=== PATIENT | female | born 1965 | race Hispanic/Latino ===

== ENCOUNTER 2017-11-22 21:04 | Emergency (ER) | payer OTHER ==
--- NOTE | 2017-11-22 21:08 | C.PDOC ---
History Of Present Illness Pt went bowling 2 days ago , and this morning developed sever back/lumbar pain , radiating down right leg. It got progressively worse, with shooting pain radiating down the right leg with walking. Some paresthisias. No incontinence of either urine of stool. Time Seen by Provider: 11/22/17 21:08 History Per: Patient History/Exam Limitations: no limitations Onset/Duration Of Symptoms: Days (2) Current Symptoms Are (Timing): Worse Quality Of Discomfort: Sharp, Stabbing Severity: Severe Pain Scale Rating Of: 7 Previous Symptoms: None Associated Symptoms: None Exacerbating Factor(s): Turning, Movement, Sitting Recent travel outside of the [place]: No Additional History Per: Family Past Medical History Reviewed: Historical Data, Nursing Documentation, Vital Signs Vital Signs: Last Vital Signs Temp 98.2 F 11/22/17 21:13 Pulse 93 H 11/22/17 21:13 Resp 20 11/22/17 21:13 BP 157/94 H 11/22/17 21:13 Pulse Ox 98 11/22/17 22:11 Family History: States: No Known Family Hx Review Of Systems Constitutional: Negative for: Fever, Chills Respiratory: Negative for: Shortness of Breath Gastrointestinal: Negative for: Nausea, Vomiting, Abdominal Pain Genitourinary: Negative for: Dysuria, Incontinence Musculoskeletal: Positive for: Back Pain, Leg Pain Skin: Negative for: Rash Neurological: Positive for: Numbness (right leg) Psych: Negative for: Anxiety Physical Exam - Physical Exam Appears: Non-toxic Skin: Warm, Dry Gastrointestinal/Abdominal: Soft, No Tenderness, No Distention, Other (obese) Back: Muscle Spasm, Paraspinal Tenderness (r>l. lumbar), Straight Leg Raising ( pain 10 degrees) Extremity: Tenderness (r buttock), No Pedal Edema, No Deformity Extremity: Right: Limited ROM To Joint (due to pain), Painful To Bear Weight Pulses: Left Dorsalis Pedis: Normal, Right Dorsalis Pedis: Normal Neurological/Psych: Oriented x3, Normal Speech, Normal Cognition Gait: With Assistance ED Course And Treatment O2 Sat by Pulse Oximetry: 98 Pulse Ox Interpretation: Normal Progress Note: much improved. able to ambulate unassisted Reevaluation Time: 23:23 Reassessment Condition: Improved Disposition Counseled Patient/Family Regarding: Studies Performed, Diagnosis, Need For Followup - Disposition Disposition: HOME/ ROUTINE Disposition Time: 21:08 Condition: FAIR Additional Instructions: Please follow up with your PMD Prescriptions: Baclofen [Lioresal] 5 mg PO TID #21 tab diaZEpam [Valium] 5 mg PO HS PRN #10 tab PRN Reason: back spasms Ketorolac Tromethamine [Toradol] 10 mg PO TID PRN #21 tab PRN Reason: Pain, Severe (8-10) Prednisone [Deltasone] 20 mg PO DAILY #5 tablet Instructions: Low Back Pain (DC), Lumbar Muscle Strain (DC), Back Exercises - Clinical Impression Clinical Impression: Low back pain, Low back strain, Ambulatory dysfunction
[2017-11-22] MEDS ORDERED: Dexamethasone 4 mg/1 ml IVP STA (21:22)
[2017-11-22] MEDS ORDERED: Dexamethasone 4 mg/1 ml ONE (21:39)
[2017-11-22] MEDS ORDERED: diaZEpam 10 mg/2 ml Inj IVP ONE (22:10)
[2017-11-22] MEDS ORDERED: Sodium Chloride 0.9% 500 ML IV ONE (22:10)
--- NOTE | 2017-11-22 23:12 | CT ---
EXAM: CT Lumbar Spine Without Intravenous Contrast EXAM DATE/TIME: 11/22/2017 9:22 PM CLINICAL HISTORY: 52 years old, female; Pain; Low back pain; Patient HX: Injury playing bowling; Additional info: Severe lumbar pain, r sided paresthisia TECHNIQUE: Axial computed tomography images of the lumbar spine without intravenous contrast. All CT scans at this facility use one or more dose reduction techniques, viz.: automated exposure control; ma/kV adjustment per patient size (including targeted exams where dose is matched to indication; i.e. head); or iterative reconstruction technique. Coronal and sagittal reformatted images were created and reviewed. COMPARISON: No relevant prior studies available. FINDINGS: There are mild degenerative changes in the osseous structures. There is joint space narrowing L5-S1 with small osteophyte formation. The vertebral bodies are well aligned. The vertebral body height is well maintained. No fractures. No traumatic disc herniation identified. IMPRESSION: No acute findings.
[2017-11-22 23:45] VITALS: BP 126/68; PULSE 83; RESP 18; TEMP 97.9; O2SAT 95
== END 2017-11-22 23:44 | disposition home or self-care (01) ==
LOC: C.ER 21:04
DX: S39.012A Strain of muscle, fascia and tendon of lower back, initial encounter (principal); Y93.54 Activity, bowling; M54.5 Low back pain; R26.2 Difficulty in walking, not elsewhere classified
CPT/HCPCS: 72131; 96374; 96375; 99283; J1100; J1885; J7040